=== PATIENT | male | born 1980 | race Hispanic/Latino ===

== ENCOUNTER 2024-08-30 17:31 | Emergency (ER) | payer SELFPAY ==
[2024-08-30] MEDS ORDERED: Sodium Chloride 0.9% 1,000 ML ONE (18:02)
[2024-08-30] MEDS ORDERED: Diazepam 10 MG/2 ML SYRINGE ONE ×2 (18:02→18:43)
[2024-08-30 18:18] LABS: Hematocrit 53.3 % (42.0-52.0); Hemoglobin 17.6 g/dL (14.0-18.0); Mean Corpuscular Hemoglobin 28.9 pg (27.0-31.0); Mean Corpuscular Volume 87.4 fl (78.0-98.0); Mean Platelet Volume 8.4 fL (7.4-10.4); Platelet Count 383 10x3/uL (130-400); RBC Distribution Width 13.2 % (11.5-14.5); White Blood Cell (WBC) Count 5.5 10x3/uL (4.8-10.8)
[2024-08-30 18:27] LABS: ALT (SGPT) 146 U/L (Less than 45); AST (SGOT) 121 U/L (11-34); Albumin 4.6 g/dL (3.1-4.5); Alkaline Phosphatase 84 U/L (40-110); Anion Gap 27 mmol/L (10-20); BUN (Urea Nitrogen) 7 mg/dL (8.9-20.6); Bilirubin, Total 0.8 mg/dL (0.3-1.2); Calc. Creatinine Clearance 0 mL/min (70-130); Calcium 9.6 mg/dL (7.8-10.44); Carbon Dioxide 19 mmol/L (22-29); Chloride 99 mmol/L (98-107); Estimated GFR 121; Globulin 3.8 g/dL (2.4-3.5); Glucose 246 mg/dL (70-105); Potassium 3.5 mmol/L (3.5-5.1); Protein, Total 8.4 g/dL (6.0-8.3); Sodium 141 mmol/L (136-145)
[2024-08-30 18:28] LABS: Acetaminophen Less than 10 mcg/mL (Less than 10); Alcohol 206.4 mg/dL (Less than 10); Lipase 28 U/L (8-78); Salicylate Less than 8.0 mg/dL (Less than 8.0)
[2024-08-30 18:30] LABS: Lymphocytes 36 % (21-51); MDiff Complete? YES; Manual Diff?? YES; Monocytes 6 % (0-10); Neutrophil 34 % (42-75); Reactive Lymphocytes 22 % (0-10)
[2024-08-30 18:31] LABS: Eosinophils 2 % (0-10); Platelet Adequacy Comment Appears Adequate
[2024-08-30] MEDS ORDERED: Folic Acid 5 MG/ML MDV ONE (18:42)
[2024-08-30] MEDS ORDERED: Dextrose 5 % And 0.9 % NaCl 1,000 ML ONE (18:43)
[2024-08-30] MEDS ORDERED: Thiamine HCl 200 MG/2 ML VIAL ONE (18:43)
[2024-08-30] MEDS ORDERED: Insulin Regular, Human 100 UNIT/ML 10 ML VIAL ONE (18:43)
[2024-08-30] MEDS ORDERED: Multivit, Adult Inj 10 ML VIAL ONE (18:43)
== END 2024-08-30 21:04 | disposition home or self-care (01) ==
LOC: MADERS 17:31
DX: F10.239 Alcohol dependence with withdrawal, unspecified (principal); E11.9 Type 2 diabetes mellitus without complications; Y90.7 Blood alcohol level of 200-239 mg/100 ml; Z87.891 Personal history of nicotine dependence; Z79.84 Long term (current) use of oral hypoglycemic drugs
CPT/HCPCS: 80053; 80307; 83690; 85025; 96361; 96365; 96366; 96375; 96376; J1815; J3360; J3411; J7030; J7042